=== PATIENT | female | born 1990 | race Caucasian/White ===

== ENCOUNTER 2016-05-03 20:09 | Emergency (ER) | payer BC ==
--- NOTE | ~2016-05-03 | US98 ---
[facility] A Service of [facility] / [facility] RADIOLOGY TEXT RESULTS PATIENT: SUNIL SARAVIA LOCATION: SED : [birth year] UNIT #: [id number] AGE: [address]: Mary Nieto MD SEX: F ORDER DR: [id number] [place] [id number] E MR#: [id number] Acc #: [id number] NAME: SUNIL SARAVIA : 1990 SEX: F STUDY DATE/TIME: 05/03/2016 20:58 UNIT: SED ROOM: STUDY DESCRIPTION: US Pelvic Non-OB Complete Attending Physician: Mary Nieto M.D. Ordering Physician: Physician Non-Staff Primary Care Physician: Tj Galeano M.D. MEDICAL IMAGING REPORT This report is preliminary unless electronic signature is present. EXAM Pelvic ultrasound, 05/03. INDICATIONS Menstrual cramping for the last 3 days. Diagnosis of urinary tract infection, 04/28/2016. Negative test. FINDINGS Transvaginal imaging was performed of the pelvis in multiple planes. No comparison. Uterus measures 3.7 x 6.2 x 3.2 cm. Endometrial stripe is normal at between 4 and 7 mm. No adnexal masses are seen. The ovaries are not well seen, but appear grossly normal and show perfusion. There is no free fluid. IMPRESSION Normal pelvic ultrasound. The ovaries are not well seen, but do demonstrate perfusion by Doppler. No free fluid. Dictated by... Genaro Soto Jr., M.D. THIS IS AN ELECTRONICALLY VERIFIED REPORT Genaro Soto Jr., M.D. at 05/04/2016 4:23 PM SHAQUILLE/meli TD: 05/04/2016 11:13 JOB #: [id number] [facility] A Service of [facility] / [facility] RADIOLOGY TEXT RESULTS PATIENT: SUNIL SARAVIA LOCATION: SED : 90 UNIT #: [id number] AGE: [address]: Mary Nieto MD SEX: F ORDER DR: MEDICAL IMAGING REPORT Page 1 of 1
[2016-05-03 19:49] LABS: URINE SOURCE CLEAN CATCH
[2016-05-03 19:54] LABS: URINE APPEARANCE SL CLOUDY; URINE BILIRUBIN POS (NEG); URINE BLOOD 3+ (NEG); URINE COLOR BROWN; URINE GLUCOSE NEG (NORM); URINE KETONE 1+ (NEG); URINE LEUKOCYTE ESTERASE TRACE (NEG); URINE NITRATE NEG (NEG); URINE PROTEIN 2+ (NEG); URINE SPECIFIC GRAVITY >=1.030 (1.003-1.035)
[2016-05-03 20:00] LABS: MICRO INDICATED? YES
[2016-05-03 20:04] LABS: URINE RBC INNUM /[HPF] (0-2)
[2016-05-03 20:05] LABS: CULTURE INDICATED? YES; URINE BACTERIA 2+ (NEG); URINE MUCUS PRESENT; URINE SQUAMOUS EPITHELIAL CELL FEW /[HPF]
[~2016-05-03 20:09] MED LIST: ADIPEX-P37.5 M1 PO; ALBUTEROL17 GM INH; ALLEGRA PO; AMOXICILLIN500 M1 PO; ANTIBIOTIC; BACTRIM DS TABL1 TA1 PO; BENTYL20 MG PO; CERTAGEN PO; CIPRO PO; ERYTHROMYC3.5 GM OPT OP; HYDROCODON-ACE1 EAC7 PO; IBUPROFEN800 MG PO; IMODIUM2 MG PO; KEFLEX500 M2 PO; MEDROL DOSEPAK4 MG PO; NEXIUM; NO MEDICATIONS; OMNICEF250 MG/5 M PO; OYSTER CALCIUM500 MG PO; PHENERGAN PO; PHENERGAN W/CODEINE PO; PHENERGAN/CODEIN5 ML PO; PHENERGAN25 M1 PO; PHENTERMINE; PHENTERMINE H37.5 M1 PO; PREDNISONE PO; PREDNISONE50 MG PO; PYRIDIUM PO; ULTRAM PO; VIBRAMYCIN100 M1 PO; VOLTAREN50 MG PO; ZANAFLEX2 MG PO; ZITHROMAX PO; ZOFRAN; ZYRTEC10 M1
[2016-05-06 00:23] LABS: CHLAMYDIA TRACH Not Detected (Not Detected); N GONOR Not Detected (Not Detected)
== END 2016-05-03 22:29 | disposition home or self-care (01) ==
LOC: SED 20:09
PROVIDERS: Emergency Medicine
DX: R10.2 Pelvic and perineal pain (principal)
CPT/HCPCS: 76830; 76856; 81003; 84703; 87086; 87210; 87491; 87591; 87808; 87905; 96372; 99284; J1885; J2550